=== PATIENT | female | born 1950 | race Caucasian/White ===

== ENCOUNTER 2018-02-10 12:30 | Inpatient (IN) | payer OTHER ==
[2018-02-10 13:06] LABS: ADD MAN DIFF? NO
[2018-02-10 13:11] LABS: WHITE BLOOD COUNT 14.2 10^3/ul (4.8-10.8)
[2018-02-10 13:11] LABS: BASOPHIL # 0.1 10^3/ul (0.0-0.1); BASOPHILS % 0.4 % (0.0-2.0); EOSINOPHILS # 0.1 10^3/ul (0.0-0.5); EOSINOPHILS % 0.8 % (0.0-7.0); HEMATOCRIT 36.4 % (37.0-47.0); HEMOGLOBIN 11.9 g/dl (12.0-16.0); LYMPHOCYTES # 2.4 10^3/ul (0.8-2.9); LYMPHOCYTES % 17.2 % (15.0-51.0); MEAN CORPUSCULAR HEMOGLOBIN 26.1 pg (29.0-33.0); MEAN CORPUSCULAR HGB CONC 32.7 g/dl (32.0-37.0); MEAN CORPUSCULAR VOLUME 79.8 fl (82.0-101.0); MEAN PLATELET VOLUME 11.3 fl (7.4-10.4); MONOCYTES % 6.8 % (0.0-11.0); NEUTROPHIL # 10.6 10^3/ul (1.6-7.5); NEUTROPHILS % 74.4 % (39.0-77.0); PLATELET COUNT 325 10^3/UL (140-415); RED BLOOD COUNT 4.56 10^6/ul (4.20-5.40)
[2018-02-10] MEDS: morphine 4 MG/ML VIAL IV (13:17)
[2018-02-10] MEDS: ONDANSETRON 4 MG INJ IV (13:17)
[2018-02-10] MEDS: SOD CHLORIDE 0.9% 1,000 ML IV (13:17)
[2018-02-10 13:22] LABS: ALANINE AMINOTRANSFERASE 255 IU/L (13-69); ALBUMIN 3.4 g/dl (3.3-4.9); ALBUMIN/GLOBULIN RATIO 0.91; ALKALINE PHOSPHATASE 376 IU/L (42-121); ANION GAP 9 (5-13); ASPARTATE AMINO TRANSFERASE 95 IU/L (15-46); BILIRUBIN,INDIRECT 0.8 mg/dl (0-1.1); BILIRUBIN,TOTAL 0.8 mg/dl (0.2-1.3); BLOOD UREA NITROGEN 17 mg/dl (7-20); CARBON DIOXIDE 27 mmol/L (21-31); CHLORIDE 103 mmol/L (97-110); CREATININE 0.69 mg/dl (0.44-1.00); GLUCOSE 215 mg/dl (70-220); LIPASE 601 U/L (23-300); SODIUM 139 mmol/L (135-144); TOTAL PROTEIN 7.1 g/dl (6.1-8.1)
[2018-02-10] MEDS ORDERED: ACETAMINOPHEN 325 MG TAB PO (15:30)
[2018-02-10] MEDS ORDERED: GLUCOSE GEL 15 GRAM TUBE PO ×2 (17:00)
[2018-02-10] MEDS ORDERED: GLUCAGON 1 MG INJ IM (17:00)
[2018-02-10] MEDS ORDERED: NITROGLYCERIN (SL) 0.4 MG TAB SL (17:00)
[2018-02-10] MEDS ORDERED: DEXTROSE 50% 50 ML SYRINGE IV ×2 (17:00)
[2018-02-10] MEDS ORDERED: GLUCOSE GEL 15 GRAM TUBE BUCCAL (17:00)
[2018-02-10] MEDS ORDERED: metroNIDAZOLE (5 MG/ML) IV SYG IV* (17:00)
[2018-02-10] MEDS ORDERED: NACL 0.9% 3 ML SYG IV (17:00)
[2018-02-10] MEDS: Metronidazole 500 MG in NS 100 ML IVPB ×2 (17:05→23:50)
[2018-02-10] MEDS: LACTATED RINGER'S 1,000 ML IV ×3 (17:05→23:50)
[2018-02-10] MEDS: ENOXAPARIN 40 MG/0.4 ML SYG SC (17:08)
[2018-02-10] MEDS: INSULIN ASPART [NOVOLOG] 3 ML PEN SC (17:14)
[2018-02-10] MEDS: ACCU-CHEK XX (17:27)
[2018-02-10 17:56] LABS: INR 1.35; PROTIME 16.9 Sec (11.9-14.9); PT RATIO 1.3
[2018-02-10 17:57] LABS: PARTIAL THROMBOPLASTIN TIME 30.4 Sec (23.0-35.0)
[2018-02-10 17:58] LABS: CHOLESTEROL 199 mg/dl (100-200)
[2018-02-10 17:58] LABS: CHOL/HDL RATIO 4.4 RATIO; HDL CHOLESTEROL 45 mg/dl (35-98); LDL CHOLESTEROL,CALCULATED 113 mg/dl; TRIGLYCERIDES 203 mg/dl (0-149)
[2018-02-10 18:02] LABS: LACTIC ACID 3.3 mmol/L (0.5-2.0)
[2018-02-10] MEDS: morphine 2 MG INJ IV (18:13)
[2018-02-10] MEDS: CIPROFLOXACIN 400MG/D5W 200 ML IVPB (20:27)
[2018-02-10] MEDS: traZODone 50 MG TAB PO (20:42)
[2018-02-10] MEDS: DIPHENHYDRAMINE 50 MG INJ IV (20:42)
[2018-02-10 20:46] LABS: LACTIC ACID 1.8 mmol/L (0.5-2.0)
[2018-02-11] MEDS: ACCU-CHEK XX (00:45)
[2018-02-11] MEDS: LACTATED RINGER'S 1,000 ML IV ×5 (05:00→23:54)
[2018-02-11] MEDS: ENOXAPARIN 40 MG/0.4 ML SYG SC ×2 (05:01→17:48)
[2018-02-11] MEDS: Metronidazole 500 MG in NS 100 ML IVPB ×3 (05:02→22:06)
[2018-02-11] MEDS: PANTOPRAZOLE (EC) 40 MG TAB PO (05:03)
[2018-02-11 05:11] LABS: WHITE BLOOD COUNT 7.6 10^3/ul (4.8-10.8)
[2018-02-11 05:11] LABS: ADD MAN DIFF? NO; BASOPHILS % 0.3 % (0.0-2.0); EOSINOPHILS # 0.1 10^3/ul (0.0-0.5); EOSINOPHILS % 1.8 % (0.0-7.0); HEMATOCRIT 30.7 % (37.0-47.0); HEMOGLOBIN 9.9 g/dl (12.0-16.0); LYMPHOCYTES # 2.5 10^3/ul (0.8-2.9); LYMPHOCYTES % 32.5 % (15.0-51.0); MEAN CORPUSCULAR HEMOGLOBIN 26.3 pg (29.0-33.0); MEAN CORPUSCULAR HGB CONC 32.2 g/dl (32.0-37.0); MEAN CORPUSCULAR VOLUME 81.4 fl (82.0-101.0); MEAN PLATELET VOLUME 11.5 fl (7.4-10.4); MONOCYTE # 0.5 10^3/ul (0.3-0.9); MONOCYTES % 6.8 % (0.0-11.0); NEUTROPHIL # 4.4 10^3/ul (1.6-7.5); NEUTROPHILS % 58.2 % (39.0-77.0); PLATELET COUNT 240 10^3/UL (140-415); RED BLOOD COUNT 3.77 10^6/ul (4.20-5.40); RED CELL DISTRIBUTION WIDTH 18.4 % (11.5-14.5)
[2018-02-11] MEDS: INSULIN ASPART [NOVOLOG] 3 ML PEN SC ×5 (06:00→23:52)
[2018-02-11 06:03] LABS: FREE THYROXINE INDEX (Calc) 3.58 ug/ml (0.65-3.89); T3 UPTAKE 38.1 % (23.5-40.5); T4 (THYROXINE) 9.4 ug/dl (5.5-11.0)
[2018-02-11] MEDS: morphine 2 MG INJ IV ×4 (06:18→20:27)
[2018-02-11 06:19] LABS: ALANINE AMINOTRANSFERASE 186 IU/L (13-69); ALBUMIN 2.6 g/dl (3.3-4.9); ALBUMIN/GLOBULIN RATIO 0.89; ALKALINE PHOSPHATASE 273 IU/L (42-121); ANION GAP 8 (5-13); ASPARTATE AMINO TRANSFERASE 70 IU/L (15-46); BILIRUBIN,INDIRECT 0.6 mg/dl (0-1.1); BILIRUBIN,TOTAL 0.6 mg/dl (0.2-1.3); BLOOD UREA NITROGEN 12 mg/dl (7-20); CALCIUM 8.9 mg/dl (8.4-10.2); CARBON DIOXIDE 27 mmol/L (21-31); CHLORIDE 105 mmol/L (97-110); CREATININE 0.64 mg/dl (0.44-1.00); GLUCOSE 140 mg/dl (70-220); MAGNESIUM 1.3 mg/dl (1.7-2.5); PHOSPHORUS 2.9 mg/dl (2.5-4.9); POTASSIUM 4.1 mmol/L (3.5-5.1); SODIUM 140 mmol/L (135-144); TOTAL PROTEIN 5.5 g/dl (6.1-8.1)
[2018-02-11] MEDS: ONDANSETRON 4 MG INJ IV (06:21)
[2018-02-11] MEDS: LEVOTHYROXINE 100 MCG TAB PO (06:21)
[2018-02-11] MEDS: DIPHENHYDRAMINE 50 MG INJ IV ×2 (07:44→23:05)
[2018-02-11] MEDS: HYDROCODONE/APAP (5/325) TAB PO ×2 (07:44→19:54)
[2018-02-11] MEDS: LISINOPRIL 10 MG TAB PO (08:17)
[2018-02-11] MEDS: GABAPENTIN 300 MG CAP PO (08:17)
[2018-02-11] MEDS: CIPROFLOXACIN 400MG/D5W 200 ML IVPB ×2 (08:17→20:25)
[2018-02-11] MEDS: MAGNESIUM SULFATE 4 GM/100 ML 100 ML IVPB (10:19)
[2018-02-11 10:29] LABS: HEMOGLOBIN A1C 6.7 % (0-5.9)
[2018-02-11] MEDS: hydrALAzine 20 MG INJ IV (22:02)
[2018-02-11] MEDS: traZODone 50 MG TAB PO (22:07)
[2018-02-12] MEDS: morphine 2 MG INJ IV ×2 (01:55→18:09)
[2018-02-12] MEDS: ACCU-CHEK XX (02:00)
[2018-02-12] MEDS: LACTATED RINGER'S 1,000 ML IV ×5 (03:59→20:36)
[2018-02-12] MEDS: HYDROCODONE/APAP (5/325) TAB PO ×3 (04:45→15:05)
[2018-02-12] MEDS: hydrALAzine 20 MG INJ IV ×2 (04:51→21:11)
[2018-02-12] MEDS: Metronidazole 500 MG in NS 100 ML IVPB ×3 (05:09→22:06)
[2018-02-12 05:33] LABS: ALANINE AMINOTRANSFERASE 156 IU/L (13-69); ALBUMIN 2.5 g/dl (3.3-4.9); ALKALINE PHOSPHATASE 272 IU/L (42-121); ASPARTATE AMINO TRANSFERASE 64 IU/L (15-46); BILIRUBIN,INDIRECT 0.5 mg/dl (0-1.1); BILIRUBIN,TOTAL 0.5 mg/dl (0.2-1.3); TOTAL PROTEIN 5.1 g/dl (6.1-8.1)
[2018-02-12 05:35] LABS: LIPASE 303 U/L (23-300)
[2018-02-12] MEDS: PANTOPRAZOLE (EC) 40 MG TAB PO ×2 (06:18→18:09)
[2018-02-12] MEDS: LEVOTHYROXINE 100 MCG TAB PO (06:18)
[2018-02-12] MEDS: INSULIN ASPART [NOVOLOG] 3 ML PEN SC ×4 (06:28→18:00)
[2018-02-12] MEDS: ENOXAPARIN 40 MG/0.4 ML SYG SC ×2 (06:30→18:10)
[2018-02-12] MEDS: CIPROFLOXACIN 400MG/D5W 200 ML IVPB ×2 (09:14→20:37)
[2018-02-12] MEDS: LISINOPRIL 10 MG TAB PO (09:15)
[2018-02-12] MEDS: GABAPENTIN 300 MG CAP PO (09:16)
[2018-02-12] MEDS: traZODone 50 MG TAB PO (20:37)
[2018-02-12] MEDS: ONDANSETRON 4 MG INJ IV (20:39)
[2018-02-13] MEDS: ACCU-CHEK XX (02:00)
[2018-02-13 04:57] LABS: ADD MAN DIFF? NO
[2018-02-13 05:12] LABS: BASOPHILS % 0.3 % (0.0-2.0); EOSINOPHILS % 0.5 % (0.0-7.0); HEMATOCRIT 30.3 % (37.0-47.0); HEMOGLOBIN 9.8 g/dl (12.0-16.0); LYMPHOCYTES # 1.7 10^3/ul (0.8-2.9); LYMPHOCYTES % 21.9 % (15.0-51.0); MEAN CORPUSCULAR HGB CONC 32.3 g/dl (32.0-37.0); MEAN CORPUSCULAR VOLUME 80.4 fl (82.0-101.0); MEAN PLATELET VOLUME 11.9 fl (7.4-10.4); MONOCYTE # 0.7 10^3/ul (0.3-0.9); MONOCYTES % 8.9 % (0.0-11.0); NEUTROPHIL # 5.2 10^3/ul (1.6-7.5); NEUTROPHILS % 67.6 % (39.0-77.0); PLATELET COUNT 265 10^3/UL (140-415); RED BLOOD COUNT 3.77 10^6/ul (4.20-5.40); RED CELL DISTRIBUTION WIDTH 18.6 % (11.5-14.5)
[2018-02-13 05:12] LABS: WHITE BLOOD COUNT 7.6 10^3/ul (4.8-10.8)
[2018-02-13] MEDS: ENOXAPARIN 40 MG/0.4 ML SYG SC (05:14)
[2018-02-13 05:19] LABS: LIPASE 114 U/L (23-300)
[2018-02-13 05:19] LABS: ALANINE AMINOTRANSFERASE 135 IU/L (13-69); ALBUMIN 2.4 g/dl (3.3-4.9); ALKALINE PHOSPHATASE 273 IU/L (42-121); ASPARTATE AMINO TRANSFERASE 54 IU/L (15-46); BILIRUBIN,INDIRECT 0.5 mg/dl (0-1.1); BILIRUBIN,TOTAL 0.5 mg/dl (0.2-1.3); TOTAL PROTEIN 4.9 g/dl (6.1-8.1)
[2018-02-13] MEDS: Metronidazole 500 MG in NS 100 ML IVPB ×2 (06:20→14:59)
[2018-02-13] MEDS: LEVOTHYROXINE 100 MCG TAB PO (06:21)
[2018-02-13] MEDS: PANTOPRAZOLE (EC) 40 MG TAB PO ×2 (06:21→18:13)
[2018-02-13] MEDS: INSULIN ASPART [NOVOLOG] 3 ML PEN SC ×5 (06:22→21:34)
[2018-02-13] MEDS: hydrALAzine 20 MG INJ IV ×3 (06:28→21:35)
[2018-02-13] MEDS: LACTATED RINGER'S 1,000 ML IV (08:19)
[2018-02-13] MEDS: CIPROFLOXACIN 400MG/D5W 200 ML IVPB (08:19)
[2018-02-13] MEDS: LISINOPRIL 10 MG TAB PO (08:22)
[2018-02-13] MEDS: GABAPENTIN 300 MG CAP PO (08:22)
[2018-02-13] MEDS: ONDANSETRON 4 MG INJ IV (11:36)
[2018-02-13] MEDS: MAGNESIUM CITRATE 300 ML BTL PO (14:59)
[2018-02-13] MEDS ORDERED: VITAMIN A & D 5 GM OINT PACKET TOP (20:22)
[2018-02-13] MEDS: DOCUSATE SODIUM 100 MG CAP PO (21:00)
[2018-02-13] MEDS: traZODone 50 MG TAB PO (21:32)
[2018-02-13] MEDS: ENOXAPARIN 60 MG/0.6 ML SYG SC (21:35)
[2018-02-13] MEDS: HYDROCODONE/APAP (5/325) TAB PO (21:45)
[2018-02-14] MEDS: ACCU-CHEK XX (02:00)
[2018-02-14 05:52] LABS: ADD MAN DIFF? NO
[2018-02-14 06:00] LABS: BASOPHILS % 0.4 % (0.0-2.0); EOSINOPHILS # 0.1 10^3/ul (0.0-0.5); EOSINOPHILS % 1.2 % (0.0-7.0); HEMOGLOBIN 9.9 g/dl (12.0-16.0); LYMPHOCYTES # 1.7 10^3/ul (0.8-2.9); LYMPHOCYTES % 23.7 % (15.0-51.0); MEAN CORPUSCULAR HEMOGLOBIN 26.1 pg (29.0-33.0); MEAN CORPUSCULAR VOLUME 79.2 fl (82.0-101.0); MEAN PLATELET VOLUME 12.4 fl (7.4-10.4); MONOCYTE # 0.7 10^3/ul (0.3-0.9); MONOCYTES % 9.8 % (0.0-11.0); NEUTROPHIL # 4.7 10^3/ul (1.6-7.5); NEUTROPHILS % 63.8 % (39.0-77.0); PLATELET COUNT 308 10^3/UL (140-415); RED BLOOD COUNT 3.79 10^6/ul (4.20-5.40); RED CELL DISTRIBUTION WIDTH 18.7 % (11.5-14.5)
[2018-02-14 06:00] LABS: WHITE BLOOD COUNT 7.4 10^3/ul (4.8-10.8)
[2018-02-14] MEDS: LEVOTHYROXINE 100 MCG TAB PO (06:10)
[2018-02-14] MEDS: PANTOPRAZOLE (EC) 40 MG TAB PO (06:10)
[2018-02-14] MEDS: hydrALAzine 20 MG INJ IV (06:33)
[2018-02-14 06:37] LABS: ALANINE AMINOTRANSFERASE 108 IU/L (13-69); ALBUMIN/GLOBULIN RATIO 1.07; ALKALINE PHOSPHATASE 258 IU/L (42-121); ANION GAP 12 (5-13); ASPARTATE AMINO TRANSFERASE 43 IU/L (15-46); BILIRUBIN,INDIRECT 0.4 mg/dl (0-1.1); BILIRUBIN,TOTAL 0.4 mg/dl (0.2-1.3); BLOOD UREA NITROGEN 7 mg/dl (7-20); CALCIUM 8.5 mg/dl (8.4-10.2); CARBON DIOXIDE 21 mmol/L (21-31); CHLORIDE 106 mmol/L (97-110); CREATININE 0.54 mg/dl (0.44-1.00); Estimated GFR > 60 mL/min (>60); GLUCOSE 163 mg/dl (70-220); POTASSIUM 3.7 mmol/L (3.5-5.1); SODIUM 139 mmol/L (135-144); TOTAL PROTEIN 5.8 g/dl (6.1-8.1)
[2018-02-14] MEDS: GABAPENTIN 300 MG CAP PO (08:51)
[2018-02-14] MEDS: LISINOPRIL 10 MG TAB PO (08:52)
[2018-02-14] MEDS: INSULIN ASPART [NOVOLOG] 3 ML PEN SC ×2 (08:53→12:39)
[2018-02-14] MEDS: ENOXAPARIN 60 MG/0.6 ML SYG SC (08:54)
[2018-02-14] MEDS: DOCUSATE SODIUM 100 MG CAP PO (08:54)
== END 2018-02-14 13:30 | disposition home or self-care (01) | DRG 439 ==
LOC: E/R 12:30 → MS1 16:10
DX: K85.10 Biliary acute pancreatitis without necrosis or infection (principal); E87.2 Acidosis; I48.0 Paroxysmal atrial fibrillation; E11.9 Type 2 diabetes mellitus without complications; E03.9 Hypothyroidism, unspecified; I10 Essential (primary) hypertension; F32.9 Major depressive disorder, single episode, unspecified; E78.5 Hyperlipidemia, unspecified; Z79.4 Long term (current) use of insulin; Z79.01 Long term (current) use of anticoagulants; Z90.49 Acquired absence of other specified parts of digestive tract; Z86.73 Personal history of transient ischemic attack (TIA), and cerebral infarction without residual deficits
CPT/HCPCS: 36415; 74181; 76705; 80053; 80061; 80076; 82962; 83036; 83605; 83690; 83735; 84100; 84436; 84479; 85025; 85610; 85730; 87040; 93005; 96374; 96375; 99285-25

== ENCOUNTER 2018-07-04 18:48 | Emergency (ER) | payer OTHER ==
[2018-07-04] MEDS: SOD CHLORIDE 0.9% 500 ML IV (19:28)
[2018-07-04] MEDS: METOCLOPRAMIDE 10 MG INJ IV (19:28)
[2018-07-04 19:30] LABS: ADD MAN DIFF? NO
[2018-07-04 19:31] LABS: WHITE BLOOD COUNT 6.7 10^3/ul (4.8-10.8)
[2018-07-04 19:31] LABS: BASOPHILS % 0.3 % (0.0-2.0); EOSINOPHILS # 0.1 10^3/ul (0.0-0.5); EOSINOPHILS % 1.2 % (0.0-7.0); HEMATOCRIT 34.3 % (37.0-47.0); HEMOGLOBIN 10.8 g/dl (12.0-16.0); LYMPHOCYTES # 2.6 10^3/ul (0.8-2.9); LYMPHOCYTES % 38.6 % (15.0-51.0); MEAN CORPUSCULAR HEMOGLOBIN 25.4 pg (29.0-33.0); MEAN CORPUSCULAR HGB CONC 31.5 g/dl (32.0-37.0); MEAN CORPUSCULAR VOLUME 80.5 fl (82.0-101.0); MEAN PLATELET VOLUME 10.4 fl (7.4-10.4); MONOCYTE # 0.5 10^3/ul (0.3-0.9); NEUTROPHIL # 3.5 10^3/ul (1.6-7.5); NEUTROPHILS % 52.6 % (39.0-77.0); PLATELET COUNT 303 10^3/UL (140-415); RED BLOOD COUNT 4.26 10^6/ul (4.20-5.40); RED CELL DISTRIBUTION WIDTH 15.8 % (11.5-14.5)
[2018-07-04 19:51] LABS: INR 1.13; PROTIME 14.6 Sec (11.9-14.9); PT RATIO 1.1
[2018-07-04 19:52] LABS: PARTIAL THROMBOPLASTIN TIME 24.7 Sec (23.0-35.0)
[2018-07-04 19:54] LABS: ANION GAP 11 (5-13); BLOOD UREA NITROGEN 13 mg/dl (7-20); CALCIUM 9.9 mg/dl (8.4-10.2); CARBON DIOXIDE 26 mmol/L (21-31); CHLORIDE 101 mmol/L (97-110); CREATININE 0.59 mg/dl (0.44-1.00); Estimated GFR > 60 mL/min (>60); GLUCOSE 240 mg/dl (70-220); POTASSIUM 4.1 mmol/L (3.5-5.1); SODIUM 138 mmol/L (135-144)
[2018-07-04 20:46] LABS: ERYTHROCYTE SEDIMENTATION RATE 8 mm/Hr (0-30)
[2018-07-04] MEDS: predniSONE 20 MG TAB PO (20:55)
[2018-07-04] MEDS: VALACYCLOVIR 500 MG TAB PO (20:55)
== END 2018-07-04 20:57 | disposition home or self-care (01) ==
LOC: E/R 18:48
DX: G51.0 Bell's palsy (principal); R20.0 Anesthesia of skin; I10 Essential (primary) hypertension; E03.9 Hypothyroidism, unspecified; E11.9 Type 2 diabetes mellitus without complications; Z79.01 Long term (current) use of anticoagulants; Z79.4 Long term (current) use of insulin
CPT/HCPCS: 36415; 70450; 80048; 85025; 85610; 85651; 85730; 93005; 96374; 99285-25